=== PATIENT | female | born 1980 | race Caucasian/White ===

== ENCOUNTER 2022-01-26 14:00 | Emergency (ER) | payer OTHER ==
[~2022-01-26] VITALS: Ht 152.4 cm; Wt 120.2 kg
[2022-01-26 14:12] VITALS: BP 139/95
--- NOTE | 2022-01-26 14:21 | NUR ---
Urine cup given for clean catch specimen. Patient to [facility]
--- NOTE | 2022-01-26 14:32 | NUR ---
Patient walked to bed 5 with steady gait.
--- NOTE | 2022-01-26 14:41 | NUR ---
Lab at bedside.
[2022-01-26 14:51] LABS: BASOPHILS % (AUTO) 0.4 % (0.0-2.0); EOSINOPHILS # (AUTO) 0.2 K/uL (0-0.4); EOSINOPHILS % (AUTO) 1.8 % (0.0-4.0); HEMATOCRIT 35.6 % (36-48); HEMOGLOBIN 12.2 g/dL (12.0-16.0); LYMPHOCYTES # (AUTO) 3.1 K/uL (2.5-16.5); LYMPHOCYTES % (AUTO) 33.5 % (20.5-51.1); MEAN CORPUSCULAR HEMOGLOBIN 30 pg (27-31); MEAN CORPUSCULAR HGB CONC 34 g/dL (33-37); MEAN CORPUSCULAR VOLUME 87.2 fL (80-94); MONOCYTES # (AUTO) 0.6 K/uL (0.8-1.0); MONOCYTES % (AUTO) 6.1 % (1.7-9.3); NEUTROPHILS # (AUTO) 5.3 K/uL (1.8-7.7); NEUTROPHILS % (AUTO) 58.2 % (42.2-75.2); PLATELET COUNT (AUTO) 310 K/uL (140-450); RED BLOOD CELL COUNT(AUTO) 4.08 MIL/uL (4.20-5.40); RED CELL DISTRIBUTION WIDTH 12.4 % (11.6-13.7); WHITE BLOOD COUNT (AUTO) 9.1 K/uL (4.8-10.8)
[2022-01-26 15:18] LABS: ALBUMIN 2.9 g/dL (3.4-5.0); ASPARTATE AMINOTRANSFERASE 17 U/L (15-37); CARBON DIOXIDE 27.9 mmol/L (21-32); CHLORIDE 105 mmol/L (98-107); CREATININE 0.8 mg/dL (0.6-1.3); GFR ARICAN-AMERICAN 103 mL/min (>90); GLUCOSE 87 mg/dL (74-106); POTASSIUM 3.9 mmol/L (3.5-5.1); SODIUM SERUM 139 mmol/L (136-145); TOTAL BILIRUBIN 0.1 mg/dL (0.0-1.0); UREA NITROGEN, BLOOD 14 mg/dL (7-18)
--- NOTE | 2022-01-26 15:30 | NUR ---
41 y/o female reffered to ER by to r/o PE. Patient at had chest pain with numbness radiating to left shoulder. At assessment, patient denies any pain only discomfort to chest. Patient feels weak and not her self. Patient has SOB when deep breathing. Patient had a kidney infection 2 weeks ago and was treated with Bactrim. Medical History: Eddi HERZOG
--- NOTE | 2022-01-26 16:56 | NUR ---
Dr. Mc evaluating patient at bedside.
[2022-01-26 17:17] LABS: APPEARANCE,URINE CLEAR (CLEAR); BILIRUBIN,URINE NEGATIVE (NEGATIVE); BLOOD, URINE NEGATIVE (NEGATIVE); COLOR,URINE YELLOW (YELLOW); LEUKOCYTE ESTERASE ,URINE NEGATIVE (NEGATIVE); NITRITE, URINE NEGATIVE (NEGATIVE); UGLUCOSE NEGATIVE (NEGATIVE)
[2022-01-26 17:42] VITALS: BP 131/91
--- NOTE | 2022-01-26 17:42 | NUR ---
Patient discharged with v/s stable. Written and verbal after care instructions given. Patient verbalized understanding. Ambulatory with steady gait. All questions addressed prior to discharge. Advised to follow up with PMD.
--- NOTE | 2022-01-26 17:42 | NUR ---
The patient's care was reviewed and supervised by Manuel Castillo RN.
== END 2022-01-26 17:42 | disposition home or self-care (01) ==
LOC: MED 14:00
DX: R07.9 Chest pain, unspecified (principal); J45.909 Unspecified asthma, uncomplicated
CPT/HCPCS: 36415; 80053; 81003; 81025; 84484; 85025; 85379; 93005; 99285